=== PATIENT | female | born 1970 | race Hispanic/Latino ===

== ENCOUNTER 2018-08-30 11:56 | Emergency (ER) | payer OTHER ==
[~2018-08-30] VITALS: Ht 160 cm; Wt 90.7 kg
[~2018-08-30 11:56] MED LIST: MOTRIN800 M1 PO
--- OUTSIDE RECORDS SUMMARY | 2018-08-30 11:59 | XMS REPORT | Clinical Summary ---
Author Author 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 Last Filed Vital Signs Not on file Plan of Treatment Not on file Implants Device Identifier Shelf Expiration Date Model / Serial / Lot Implanted Type Area Manufactur er 11/16/2020 1974 / / [id number] Spng Surgfoam [id number] 1973 - Cement/Carlo J [id number] ler/Adhesi &J:[employer] Implanted: Qty: 1 on 02/20/2017 by ve :Vish Rodriguez MD MGMT Results Not on fileafter 08/29/2017 Insurance Payer Benefit Subscriber ID Type Phone Address Plan / Group [employer] xxxxxxxxxx SomaPLAC E EXCHANGE
--- OUTSIDE RECORDS SUMMARY | 2018-08-30 11:59 | XMS REPORT ---
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 Allergies, Adverse Reactions, Alerts This patient has no known allergies or adverse reactions. Medications This patient has no known medications. Results Test Description Test Time Test Comments Text Results Atomic Results Result Comments TISSUE EXAM 2017-02-21 14:08:00 Surgical Pathology Report Case: [id number] Authorizing Provider: Vish Calderon MD Collected: 02/20/2017 0951 Ord ering Location: [facility] PERIOPERATVIE Received: 02/20/2017 1218 SERVICES Pathologist: Torres Tolentino MD Specimen: Skin, Cyst/Tag/Debridement, anal skin tags A. SKIN, ANAL TAGS, EXCISION:- BENIGN FIBROEPITHELIAL POLYPS (HYPERTROPHIED ANAL PAPILLAE)- NEGATIVE FOR DYSPLASIA AND MALIGNANCY Signing Pathologist Direct Phone Line: [phone] signed by Torres Tolentino MD on 02/21/2017 at 2:08 [id number] anal papillaThe paperwork, container, and cassette are all labeled [id number].The specimen is received in formalin in a single container labeled with the patient's name (MARK) and medical record number.A. The specimen labeled "skin, cyst/tag/debridement" consists of a 3 X 3 X 1.3 cm aggregate of 6 tissue fragments, ranging from 0.4-2.2 cm in greatest dimension, all covered by a padilla-pink to purple wrinkled mucosa, and each with a cauterized surgical margin (differentially inked). Each specimen is bisected, and a medical representative section is submitted in 2 cassettes labeled A1- 2.Microscopic examination is performed and is incorporated in the diagnostic line.[facility], Department of Pathology, [address] [facility], [place] [address], [facility], Department of Pathology, [address] [place] [id number], [facility], Department of [facility], [address] [place] [address], SCREEN, URINE 2017-02-20 07:39:00 TEST URINE (BEAKER) (test [id number]) Negative
[2018-08-30] MEDS ORDERED: IBUPROFEN 600 MG TAB PO NR (14:00)
[2018-08-30] MEDS ORDERED: TAMIFLU75 MG PO (14:12)
[2018-08-30 14:27] VITALS: BP 118/78
--- NOTE | 2018-09-05 14:44 | Diagnostic Imaging Report ---
EXAMINATION: CHEST 2 VIEWS INDICATION: Fever, cough. COMPARISON: None FINDINGS: TUBES and LINES: None. LUNGS: Lungs are not well inflated. There is mild patchy opacity in the medial aspect of the right lower lung. Left lung is clear. No evidence of pulmonary edema. PLEURA: No pleural effusion or pneumothorax. HEART AND MEDIASTINUM: The cardiomediastinal silhouette is unremarkable. BONES AND SOFT TISSUES: No acute osseous abnormality. UPPER ABDOMEN: No free air under the diaphragm. Surgical clips project over the right upper abdomen. IMPRESSION: Mild patchy right basilar opacity, which may represent pneumonia in the setting of fever and cough. Recommend follow-up chest radiograph in 6-8 weeks to assess for resolution. Due to technical issues, this exam was not able to be dictated on the day of the study. A written wet read was provided on 08/30/[address] Christie. Signed by: Dr. Elsy Cortes MD on 09/05/2018 2:41 PM
== END 2018-08-30 14:37 | disposition home or self-care (01) ==
LOC: ER 11:56
DX: R50.9 Fever, unspecified (principal); R05 Cough; J09.X1 Influenza due to identified novel influenza A virus with pneumonia
CPT/HCPCS: 71046; 87400; 99283